=== PATIENT | male | born 1980 | race Caucasian/White ===

== ENCOUNTER 2019-09-18 14:58 | Emergency (ER) | payer MEDICAID ==
[2019-09-18] MEDS ORDERED: Aspirin 325 MG Tab PO ONE (15:29)
[2019-09-18] MEDS: Nitroglycerin 0.4 MG Tab.SL SL PRN ×3 (15:40→15:50)
[2019-09-18 15:55] LABS: BLOOD UREA NITROGEN,BUN 6 mg/dL (7.0-18.0); CARBON DIOXIDE,CO2 30.9 mmol/L (21.0-32.0); CHLORIDE,CL 97 mmol/L (98-107); GLUCOSE RANDOM 112 mg/dL (74-106); LIPASE 182 U/L (73-393); POTASSIUM,K 3.8 mmol/L (3.5-5.1); SODIUM,NA 135 mmol/L (136-148)
[2019-09-18] MEDS ORDERED: Nitroglycerin/D5W 25 MG/250 ML BOTTLE IV SCH (16:30)
--- NOTE | 2019-09-18 16:32 | CR ---
Indication: Chest pain. Technique: PA and lateral views the chest. Comparison: None Findings: Kyphosis of the thoracic spine is identified. The heart is normal in size. The lungs are clear. No infiltrate, pleural effusion, or pneumothorax is identified. Impression: No acute cardiopulmonary process Dictated by Anisha Damian MD @ Sep 18 2019 4:30PM Signed by Dr. Anisha Damian @ Sep 18 2019 4:31PM
[2019-09-18] MEDS ORDERED: Iopamidol 755 MG/ML 200 ML Multipack Bottle IVPUSH ONE (17:03)
--- NOTE | 2019-09-18 17:24 | EDM.PDOC ---
ED HPI GENERAL MEDICAL PROBLEM - General Chief Complaint: Chest Pain Stated Complaint: CHEST PAINS Time Seen by Provider: 09/18/19 17:23 - History of Present Illness INITIAL COMMENTS - FREE TEXT/NARRATIVE: HPI 39-year-old obese male smoker with HTN and variable medication compliance presents for evaluation of poorly characterized chest pain/base of the neck pain that waxes and wanes and is crampy like in nature, symptoms occurred up to 20 minutes in duration and are without identifiable provoking or relieving factors. Denies paresthesias of the time of these episodes. Patient denies recent immobilization, leg trauma, estrogen use, surgery in the last four weeks , hemoptysis, or malignancy in the last 6 months. M/S/F/SocHx notable for: CVA (5 reported per patient now with reported persistent anosmia); remainder reviewed with patient and in chart. ROS: Negative constitutional, eye, cardiovascular, pulmonary, GI, , MSK, skin , neurologic, psychiatric, endocrine unless noted in the HPI. Exam Gen: Pleasant, non-toxic appearing, resting comfortably. HEENT: NC, AT, PEERL, EOMI. Resp: Clear to auscultation bilaterally, normal work of breathing. Card: RRR with no M/R/G, no crackles in lung bases, no pedal edema, no JVD appreciated. GI: NT/ND Vascular: Both ankles, calves, and thighs of equal size, no calf tenderness to palpation bilaterally. MSK: No chest wall TTP. No visible deformities, strength and tone WNL. Skin: Normal color with no visible lesions. Neuro: AO x 3, no facial asymmetry, vision and hearing WNL. Psych: Mood and affect appropriate. Labs / Imaging (pertinent): WBC 15.35, Hb 17.6, Na 135, K 3.8, AST 20, ALT 33, alkaline phosphatase 105, lipase 182. Troponin (3:11 PM) 0.696), (15:36) 0.675. D-dimer 0.84 EtOH <3.0 EKG: SR 103 bpm, nonspecific ST segment depressions, no discordant T wave inversions, no LBBB. EKG (repeat) SR 73 bpm, no ST segment elevations or depressions, no hyperacute T waves, no discordant T wave inversions, no CA segment depressions. CXR: No acute cardiopulmonary disease process. CTA Chest: pending. MDM Previous chart, nursing note, and vitals reviewed. A: 39-year-old obese male smoker with HTN and variable medication compliance presents for evaluation of poorly characterized chest pain/base of the neck pain that waxes and wanes and is crampy like in nature, symptoms occurred up to 20 minutes in duration and are without identifiable provoking or relieving factors. DDx and Evaluation: patient chest pain is of unclear etiology, however a NSTEMI is most prominent on the differential, the patient has a significant troponin elevation, however this is a stable on an approximately 1.5 hour delta, patient s pain was responsive to nitroglycerin (SL followed by gtt), alternate etiologies were explored, d-dimer was positive and the patient is notable leukocytosis, chest x-ray was clear and CT PE on my initial read was without evidence of gross abnormalities. While this is not definitively exclude PE or dissection the patient is now felt to be appropriately stabilized for transfer. Repeat ECG without evidence of ischemia. ED Course: patient given aspirin and sublingual nitro, patient with reduction in pain with nitroglycerin. Troponin positive, patient placed on nitroglycerin drip. Due to positive d-dimer, atypical history, absence of ischemic changes, and radiation to neck with paresthesias there is concern for PE versus dissection and a CT angiogram was obtained, wet read without gross abnormalities. Disposition: transfer by [facility] to [facility] for further evaluation, Dr. Darryn hickman was arranged. After transfer was arrange the patient expressed concern that gas money for his would not be provided. The patient then discontinued his monitoring, IV, and comfortably ambulate from the emergency department. Prior to the patient exiting the department his condition, concern that he had a potentially unstable process, ongoing myocardial infarction, and that this could lead to or significant disability without the opportunity to return was reviewed with the patient, the patient was clinically sober, head intact insight, and left the department without further discussion. Impression: Chest Pain. (please reference below for remainder of encounter information) Critical Care Time Organ system(s): Cardiovascular Intervention: Assessment of the patient, interpretation of studies, communication related to patient care. Time: 74 minutes were spent directly related to patient care exclusive of separately billed procedures. Mid Chest Pain Score (Numeric/FACES): 6 - Related Data Allergies Allergy/AdvReac Type Severity Reaction Status Date / Time Penicillins Allergy Rash Verified 09/18/19 15:00 Home Meds: Home Meds Losartan/Hydrochlorothiazide [Losartan-HCTZ 100-25 MG] 1 tab DAILY 09/11/18 [ History] Pravastatin [Pravachol] 20 mg PO DAILY 09/11/18 [History] amLODIPine Besylate [Amlodipine Besylate] 10 mg PO DAILY 09/11/18 [History] Past Medical History Cardiovascular History: Reports: High Cholesterol, Hypertension, [place] Musculoskeletal History: Reports: Back Pain, Chronic Neurological History: Reports: CVA Endocrine/Metabolic History: Reports: Diabetes, Type II Other Dermatologic History: Hydranitis Apreva - Infectious Disease History Infectious Disease History: Reports: Chicken Pox, Measles, MRSA Social & Family History - Family History Family Medical History: Noncontributory - Tobacco Use Smoking Status *Q: Former Smoker Used Tobacco, but Quit: Yes Month/Year Tobacco Last Used: 2011 - Caffeine Use Caffeine Use: Reports: None - Recreational Drug Use Recreational Drug Use: No ED ROS GENERAL - Review of Systems Review Of Systems: See Below ED EXAM, GENERAL - Physical Exam Exam: See Below Course - Vital Signs Last Recorded V/S: Last Vital Signs Temp 36.8 C 09/18/19 15:01 Pulse 75 09/18/19 16:36 Resp 16 09/18/19 16:36 BP 146/96 H 09/18/19 16:36 Pulse Ox 96 09/18/19 16:36 - Orders/Labs/Meds Orders: Active Orders 24 hr Category Date Time Status EKG 12 Lead [EKG Documentation Completion] [RC] STAT Care 09/18/19 16:23 Active EKG Documentation Completion [RC] STAT Care 09/18/19 15:29 Active Chest PE [Ang Chest] [CT] Stat Exams 09/18/19 16:22 Taken Nitroglycerin/D5W [Nitroglycerin 25 MG/D5W 250 ML] Med 09/18/19 16:30 Active 25 mg in 250 ml IV TITRATE Medication Orders Nitroglycerin/Dextrose (Nitroglycerin 25 Mg/D5w 250 Ml) 25 mg in 250 mls @ 6 mls/hr IV TITRATE ARPITA; Protocol Last Admin: 09/18/19 16:42 Dose: 10 mcg/min, 6 mls/hr Labs: Laboratory Tests 09/18/19 09/18/19 09/18/19 Range/Units 15:11 15:11 15:11 WBC 15.35 H (4.0-11.0) K/uL RBC 6.10 H (4.50-5.90) M/uL Hgb 17.6 H (13.0-17.0) g/dL Hct 51.4 H (38.0-50.0) % MCV 84.3 (80.0-98.0) fL MCH 28.9 (27.0-32.0) pg MCHC 34.2 (31.0-37.0) g/dL RDW Std Deviation 44.4 (28.0-62.0) fl RDW Coeff of Kari 15 (11.0-15.0) % Plt Count 334 (150-400) K/uL MPV 10.00 (7.40-12.00) fL Neut % (Auto) 59.3 (48.0-80.0) % Lymph % (Auto) 28.9 (16.0-40.0) % Turner % (Auto) 9.0 (0.0-15.0) % Eos % (Auto) 2.2 (0.0-7.0) % Baso % (Auto) 0.6 (0.0-1.5) % Neut # (Auto) 9.1 H (1.4-5.7) K/uL Lymph # (Auto) 4.4 H (0.6-2.4) K/uL Turner # (Auto) 1.4 H (0.0-0.8) K/uL Eos # (Auto) 0.3 (0.0-0.7) K/uL Baso # (Auto) 0.1 (0.0-0.1) K/uL Nucleated RBC % 0.0 /100WBC Nucleated RBCs # 0 K/uL D-Dimer, Quantitative 0.84 H (0.0-0.50) mg/L FEU Sodium 135 L (136-148) mmol/L Potassium 3.8 (3.5-5.1) mmol/L Chloride 97 L (98-107) mmol/L Carbon Dioxide 30.9 (21.0-32.0) mmol/L BUN 6 L (7.0-18.0) mg/dL Creatinine 1.0 (0.8-1.3) mg/dL Est Cr Clr Drug Dosing 96.90 mL/min Estimated GFR (MDRD) > 60.0 ml/min Glucose 112 H (74-106) mg/dL Calcium 10.0 (8.5-10.1) mg/dL Total Bilirubin 0.4 (0.2-1.0) mg/dL AST 28 (15-37) IU/L ALT 33 (14-63) IU/L Alkaline Phosphatase 105 (46-116) U/L Troponin I 0.696 H* (0.000-0.056) ng/mL Total Protein 9.5 H (6.4-8.2) g/dL Albumin 3.9 (3.4-5.0) g/dL Globulin 5.6 H (2.6-4.0) g/dL Albumin/Globulin Ratio 0.7 L (0.9-1.6) Lipase 182 (73-393) U/L Urine Opiates Screen (NEGATIVE) Ur Oxycodone Screen (NEGATIVE) Urine Methadone Screen (NEGATIVE) Ur Barbiturates Screen (NEGATIVE) Ur Phencyclidine Scrn (NEGATIVE) Ur Amphetamine Screen (NEGATIVE) U Methamphetamines Scrn (NEGATIVE) U Benzodiazepines Scrn (NEGATIVE) U Cocaine Metab Screen (NEGATIVE) U Marijuana (THC) Screen (NEGATIVE) Ethyl Alcohol < 3.0 mg/dL 09/18/19 09/18/19 Range/Units 16:25 16:35 WBC (4.0-11.0) K/uL RBC (4.50-5.90) M/uL Hgb (13.0-17.0) g/dL Hct (38.0-50.0) % MCV (80.0-98.0) fL MCH (27.0-32.0) pg MCHC (31.0-37.0) g/dL RDW Std Deviation (28.0-62.0) fl RDW Coeff of Kari (11.0-15.0) % Plt Count (150-400) K/uL MPV (7.40-12.00) fL Neut % (Auto) (48.0-80.0) % Lymph % (Auto) (16.0-40.0) % Turner % (Auto) (0.0-15.0) % Eos % (Auto) (0.0-7.0) % Baso % (Auto) (0.0-1.5) % Neut # (Auto) (1.4-5.7) K/uL Lymph # (Auto) (0.6-2.4) K/uL Turner # (Auto) (0.0-0.8) K/uL Eos # (Auto) (0.0-0.7) K/uL Baso # (Auto) (0.0-0.1) K/uL Nucleated RBC % /100WBC Nucleated RBCs # K/uL D-Dimer, Quantitative (0.0-0.50) mg/L FEU Sodium (136-148) mmol/L Potassium (3.5-5.1) mmol/L Chloride (98-107) mmol/L Carbon Dioxide (21.0-32.0) mmol/L BUN (7.0-18.0) mg/dL Creatinine (0.8-1.3) mg/dL Est Cr Clr Drug Dosing mL/min Estimated GFR (MDRD) ml/min Glucose (74-106) mg/dL Calcium (8.5-10.1) mg/dL Total Bilirubin (0.2-1.0) mg/dL AST (15-37) IU/L ALT (14-63) IU/L Alkaline Phosphatase (46-116) U/L Troponin I 0.675 H* (0.000-0.056) ng/mL Total Protein (6.4-8.2) g/dL Albumin (3.4-5.0) g/dL Globulin (2.6-4.0) g/dL Albumin/Globulin Ratio (0.9-1.6) Lipase (73-393) U/L Urine Opiates Screen NEGATIVE (NEGATIVE) Ur Oxycodone Screen NEGATIVE (NEGATIVE) Urine Methadone Screen NEGATIVE (NEGATIVE) Ur Barbiturates Screen NEGATIVE (NEGATIVE) Ur Phencyclidine Scrn NEGATIVE (NEGATIVE) Ur Amphetamine Screen NEGATIVE (NEGATIVE) U Methamphetamines Scrn NEGATIVE (NEGATIVE) U Benzodiazepines Scrn NEGATIVE (NEGATIVE) U Cocaine Metab Screen NEGATIVE (NEGATIVE) U Marijuana (THC) Screen POSITIVE (NEGATIVE) Ethyl Alcohol mg/dL Meds: Medications Generic Name Dose Route Start Last Admin Trade Name Freq PRN Reason Stop Dose Admin Nitroglycerin/Dextrose 25 mg in 250 mls @ 6 mls/hr 09/18/19 16:30 09/18/19 16 :42 Nitroglycerin 25 Mg/D5w 250 Ml IV 10 mcg/min TITRATE ARPITA 6 mls/hr Administration Protocol 10 MCG/MIN Discontinued Medications Generic Name Dose Route Start Last Admin Trade Name Freq PRN Reason Stop Dose Admin Aspirin 325 mg 09/18/19 15:29 09/18/19 15:40 Aspirin PO 09/18/19 15:30 325 mg ONETIME ONE Administration Iopamidol 100 ml 09/18/19 17:03 09/18/19 17:04 Isovue Multipack-370 (76%) IVPUSH 09/18/19 17:04 100 ml ONETIME ONE Administration Nitroglycerin 0.4 mg 09/18/19 15:29 09/18/19 15:50 Nitrostat SL 0.4 mg Q5M PRN Administration Chest Pain Departure - Departure Time of Disposition: 17:23 Disposition: Eloped 07 Clinical Impression: Troponin level elevated - Discharge Information Referrals: Nirav Griffith DO [Primary Care Provider] - Sepsis Event Note - Evaluation Sepsis Screening Result: No Definite Risk - Focused Exam Vital Signs: Vital Signs Temp Pulse Resp BP BP Pulse Ox 09/18/19 16:36 75 16 146/96 H 96 09/18/19 15:50 146/89 H 09/18/19 15:45 143/97 H 09/18/19 15:40 167/118 H 09/18/19 15:01 36.8 C 92 20 198/137 H 99 Date Exam was Performed: 09/18/19 Time Exam was Performed: 17:23 - My Orders Last 24 Hours: My Active Orders 09/18/19 15:29 EKG Documentation Completion [RC] STAT 09/18/19 16:22 Chest PE [Ang Chest] [CT] Stat 09/18/19 16:23 EKG 12 Lead [EKG Documentation Completion] [RC] STAT 09/18/19 16:30 Nitroglycerin/D5W [Nitroglycerin 25 MG/D5W 250 ML] 25 mg in 250 ml IV TITRATE - Assessment/Plan Last 24 Hours: My Active Orders 09/18/19 15:29 EKG Documentation Completion [RC] STAT 09/18/19 16:22 Chest PE [Ang Chest] [CT] Stat 09/18/19 16:23 EKG 12 Lead [EKG Documentation Completion] [RC] STAT 09/18/19 16:30 Nitroglycerin/D5W [Nitroglycerin 25 MG/D5W 250 ML] 25 mg in 250 ml IV TITRATE
--- NOTE | 2019-09-18 17:46 | CT ---
Indication: Chest pain with elevated D-dimer and troponin. Technique: Multiple contiguous axial images were obtained from the thoracic inlet through the upper abdomen after the intravenous administration of 100 milliliters Isovue 370. Please note that all CT scans at this facility use dose modulation, iterative reconstruction, and/or weight-based dosing when appropriate to reduce radiation dose to as low as reasonably achievable. Comparison: None Findings: This exam is tailored for the evaluation of the pulmonary arteries. An enlarged left axillary lymph node is identified. This measures 2.6 x 1.8 cm in size. Coronary artery calcifications are aid minimally identified. Heart is normal in size. No pericardial effusions identified. The aorta is normal in caliber. There is no evidence of aortic dissection. No pulmonary embolism is identified. The visualized portions of the liver, gallbladder, spleen, adrenals, and kidneys are normal. No intrahepatic biliary ductal dilatation is identified. No hydronephrosis is seen. Kyphosis of the thoracic spine is identified. The lungs are clear. No infiltrate, pleural effusion, or pneumothorax is identified. Impression: No pulmonary embolism. No aortic dissection. Enlarged left axillary lymph node. Please note that all CT scans at this facility use dose modulation, iterative reconstruction, and/or weight-based dosing when appropriate to reduce radiation dose to as low as reasonably achievable. Dictated by Anisha Damian MD @ Sep 18 2019 5:40PM Signed by Dr. Anisha Damian @ Sep 18 2019 5:45PM
== END 2019-09-18 17:25 | disposition left against medical advice (07) ==
LOC: MW.ED 14:58
DX: R07.9 Chest pain, unspecified (principal); R79.89 Other specified abnormal findings of blood chemistry; I10 Essential (primary) hypertension; Z88.0 Allergy status to penicillin; E11.9 Type 2 diabetes mellitus without complications; Z86.73 Personal history of transient ischemic attack (TIA), and cerebral infarction without residual deficits; Z87.891 Personal history of nicotine dependence
CPT/HCPCS: 71046; 71275; 80053; 80305; 80320; 83690; 84484; 85025; 85379; 93005; 99291; A9270; J3490; Q9967; 99283; G0480